=== PATIENT | female | born 1960 | race Caucasian/White ===

== ENCOUNTER → 2019-12-13 10:12 | Outpatient (CLI) | payer OTHER, SELFPAY ==
--- NOTE | ~2019-12-13 | XR_ITS ---
XR hip RT 2V w AP pelvis DATE: 12/13/2019 10:56 INDICATION: Right hip injury, pain TECHNIQUE: AP pelvis, AP and lateral views of right hip COMPARISON: None FINDINGS: No pelvic fracture or bone destruction. The pubic symphysis and sacroiliac joints are inta ct. The hip joint spaces are symmetric and well preserved. There is levoscoliosis and Ll5-S1 degenerative disc disease of the lumbar spine. IMPRESSION: No significant abnormality of the right hip Reviewed, dictated and finalized at location B. WORKER
== END ==
PROVIDERS: PCP Family Medicine; Visit Provider Nurse Practitioner Family
DX: S79.919A Unspecified injury of unspecified hip, initial encounter (principal); X58.XXXA Exposure to other specified factors, initial encounter
CPT/HCPCS: 73502; 73521

== ENCOUNTER → 2021-08-20 18:45 | Outpatient (CLI) | payer OTHER, SELFPAY ==
--- NOTE | ~2021-08-20 | XR_ITS ---
XR abdomen/kub 1V 08/20/2021 19:06 Indication: Renal stones Procedure: KUB Comparison: No prior studies for comparison. Findings: Bowel gas pattern is nonobstructive. Moderate colonic fecal loading. There are left renal s tones. There are surgical clips in the epigastric region. Impression: 1: Left nephrolithiasis. Reviewed, dictated and finalized at location A. Impression: 1: Left nephrolithiasis.
== END ==
PROVIDERS: PCP Family Medicine
DX: N20.0 Calculus of kidney (principal)
CPT/HCPCS: 74018

== ENCOUNTER → 2021-11-06 16:50 | Outpatient (CLI) | payer OTHER, SELFPAY ==
--- NOTE | ~2021-11-06 | XR_ITS ---
EXAMINATION: XR abdomen/kub 1V INDICATION: Calculus of the kidney, lithotripsy in 1021 TECHNIQUE: Supine views of the abdomen were obtained on 2 radiographs. COMPARISON: 08/20/2021 FINDINGS: There is a 3 mm density projecting over the left kidney, stone versus bowel content. This m ay reflect mild the previously identified kidneys stones. A second adjacent suspected stone on the co mparison examination is no longer evident. No stones are identified along the expected courses of the ureters. There are phleboliths of the pelvis. Surgical clips are noted in the left upper quadrant. IMPRESSION: 1. 3 mm density projecting over the left kidney, stone versus bowel content. At least one of the ston es identified on the comparison radiograph is no longer evident. Reviewed, dictated and finalized at location F. ESTATE ANALYST IMPRESSION: 1. 3 mm density projecting over the left kidney, stone versus bowel content. At least one of the stones identified on the comparison radiograph is no longer e vident.
== END ==
DX: N20.0 Calculus of kidney (principal)
CPT/HCPCS: 74018

== ENCOUNTER → 2022-06-26 11:21 | Outpatient (CLI) | payer OTHER, SELFPAY ==
--- NOTE | ~2022-06-26 | MM_ITS ---
EXAMINATION: MM screening amrik BI w peterson HISTORY: Screening mammogram TECHNIQUE: Craniocaudal and mediolateral oblique 3-D tomosynthesis images were obtained and synthetic 2-D images were generated. CAD analysis was submitted and interpreted. COMPARISON: 05/22/2016, 05/17/2015 bilateral screening mammogram examinations BREAST PARENCHYMAL COMPOSITION: There are scattered areas of fibroglandular density. FINDINGS: There is no evidence of suspicious mass, calcification, or architectural distortion to sugg est malignancy in either breast. There has been no suspicious interval change. IMPRESSION: 1. No mammographic evidence of malignancy. 2. Recommend routine screening mammography in one year. BI-RADS Category 1: Negative Reviewed, dictated and finalized at location B.
== END ==
PROVIDERS: PCP Nurse Practitioner; Visit Provider Nurse Practitioner
DX: Z12.31 Encounter for screening mammogram for malignant neoplasm of breast (principal)
CPT/HCPCS: 77063; 77067

== ENCOUNTER → 2022-07-03 10:20 | Outpatient (CLI) | payer OTHER, SELFPAY ==
--- NOTE | ~2022-07-03 | DEXA_ITS ---
Bone Density Report Name: BINTA BARRON Age: 62 Sex: Female Ethnicity: White Date of : 1960 Indication: osteopenia; parental hip fracture; height loss; postmenopausal Referring Provider: JESSIE RODRÍGUEZ Study: Bone densitometry was performed. Exam Date: July 03, 2022 Accession number: [id number] Bone Density: Region BMD T-score Z-score Classification AP Spine (L1-L4) 0.797 -2.3 -0.8 Osteopenia Femoral Neck (Left) 0.652 -1.8 -0.4 Osteopenia Total Hip (Left) 1.002 0.5 1.5 Normal Femoral Neck (Right) 0.661 -1.7 -0.4 Osteopenia Total Hip (Right) 0.953 0.1 1.1 Normal Total Hip Mean 0.978 0.3 1.3 Normal World Health Organization criteria for BMD impression classify patients as: Normal (T-score at or above -1.0), Osteopenia (T-score between -1.0 and -2.5), or Osteoporosis (T-score at or below -2.5). 10-year Fracture Risk(1): Major Osteoporotic Fracture 16% Hip Fracture 0.8% Reported Risk Factors: [place] (), Neck BMD=0.652, BMI=38.6, parental fracture (1) FRAX(R) Version 3.08. Fracture probability calculated for an untreated patient. Fracture probability may be lower if the patient has received treatment. Previous Exams: Region Exam Age BMD T-score BMD Change BMD Change Date g/cm2 vs Baseline vs Previous AP Spine(L1-L4) 07/03/2022 62 0.797 -2.3 -0.016 -0.044 05/26/2015 55 0.841 -1.9 0.028 0.028 02/16/2013 52 0.813 -2.1 Total Hip(Left) 07/03/2022 62 1.002 0.5 0.086* 0.062 05/26/2015 55 0.940 0.0 0.024 0.024 02/16/2013 52 0.916 -0.2 Total Hip(Right) 07/03/2022 62 0.953 0.1 -0.009 0.033 05/26/2015 55 0.920 -0.2 -0.042 -0.042 02/16/2013 52 0.962 0.2 *Denotes significance at 95% confidence level, LSC for AP Spine = 0.022 g/cm2, LSC for Total Hip = 0.027 g/cm2 Clinical Information Provided by Patient: Parent has had a hip fracture Has used the following medications: Vitamin D, Calcium Patient maximum height was 64 Menopause Age: 51 No regular weight bearing exercise Drinks caffeinated beverages Onset of menses at age 14 Number of children 3 Impression: The patient has low bone mass, based on the Total Spine T-score. The patient has an estimated ten-year risk of hip fracture of 0.8% and an estimated ten-year risk of major fracture of 16%, based on the WHO FRAX
== END ==
PROVIDERS: PCP Family Medicine; Visit Provider Obstetrics & Gynecology Gynecology
DX: M85.89 Other specified disorders of bone density and structure, multiple sites (principal)
CPT/HCPCS: 77080